=== PATIENT | male | born 1995 | race Caucasian/White ===

== ENCOUNTER 2016-07-10 17:03 | Emergency (ER) | payer OTHER ==
--- NOTE | 2016-07-10 17:22 | ERPHSYRPT ---
- History of Present Illness Time Seen by Provider: 07/10/16 17:15 Source: patient Exam Limitations: no limitations Patient Subjective Stated Complaint: sore throat Triage Nursing Assessment: sore throat for 3 days and 'a sore in my mouth' denies fever. blister type area to lt tongue and rt throat Timing/Duration: gradual onset Severity: moderate ENT Location: throat Prearrival Treatment: no prearrival treatment Modifying Factors: Improves With: nothing Associated Symptoms: denies symptoms Allergies/Adverse Reactions: No Known Drug Allergies Allergy (Unverified 07/10/16 17:12) Home Medications: Levothyroxine Sodium 75 Mcg [Synthroid 75 Mcg] 75 mcg PO DAILY 07/10/16 [ History] Hx Tetanus, Diphtheria Vaccination/Date Given: Yes Hx Influenza Vaccination/Date Given: No Hx Pneumococcal Vaccination/Date Given: No Immunizations Up to Date: Yes - Review of Systems Constitutional: No Symptoms Eyes: No Symptoms Ears, Nose, & Throat: Mouth Pain, Throat Pain Respiratory: No Symptoms Cardiac: No Symptoms Abdominal/Gastrointestinal: No Symptoms Genitourinary Symptoms: No Symptoms Musculoskeletal: No Symptoms Skin: No Symptoms Neurological: No Symptoms Psychological: No Symptoms Endocrine: No Symptoms Hematologic/Lymphatic: No Symptoms - Past Medical History Pertinent Past Medical History: Yes Endocrine Medical History: Hypothyroidism Psycho-Social History: Anxiety - Past Surgical History Past Surgical History: Yes Other Surgical History: skin cancer. tonsils - Social History Smoking Status: Never smoker Exposure to second hand smoke: Yes Drug Use: none Patient Lives Alone: No - Nursing Vital Signs Nursing Vital Signs: Initial Vital Signs Temperature 98.0 F Temperature Source Oral Pulse Rate 66 Respiratory Rate 18 Blood Pressure 123/73 Pain Intensity 8 - Physical Exam General Appearance: moderate distress, alert Eye Exam: bilateral eye: normal inspection, EOMI Nasal Exam: normal inspection Throat Exam: pharynx tenderness (2 cm diameter shallow ulcer right posterior pharynx with whitish exudate), tongue swollen (1/2 cm diameter ulceration left tip of tongue.) Neck Exam: normal inspection, non-tender, supple, full range of motion Cardiovascular/Respiratory Exam: chest non-tender, normal breath sounds, regular rate/rhythm, heart sounds normal Abdominal Exam: non-tender, soft Neurologic Exam: alert, oriented x 3, cooperative Skin Exam: normal color, warm, dry SpO2 Interpretation: normal SpO2: 95 Oxygen Delivery: Room Air Ordered Tests: Medication Summary Discontinued Medications Generic Name Dose Route Start Last Admin Trade Name Sophy PRN Reason Stop Dose Admin Al Hydrox/Mg Hydrox/Simethicone Confirm 07/10/16 17:32 Maalox Es 30 Ml Unit Dose Administered 07/10/16 17:33 Dose 30 ml .ROUTE .STK-MED ONE Diphenhydramine HCl Confirm 07/10/16 17:31 Benadryl 12.5 Mg/5 Ml Administered 07/10/16 17:32 Dose 15 mg .ROUTE .STK-MED ONE Lidocaine HCl Confirm 07/10/16 17:32 Xylocaine Hcl Viscous * Administered 07/10/16 17:33 Dose 30 ml .ROUTE .STK-MED ONE - Departure Time of Disposition: 17:25 Departure Disposition: Home Clinical Impression: Aphthous stomatitis, Aphthous ulcer of tongue Condition: Stable Critical Care Time: No Referrals: GENNY GODINEZ [Primary Care Provider] -
[2016-07-10] MEDS ORDERED: BENADRYL 12.5 MG/5 ML ONE (17:31)
[2016-07-10] MEDS ORDERED: MAALOX ES 30 ML UNIT DOSE ONE (17:32)
[2016-07-10] MEDS ORDERED: XYLOCAINE HCl Viscous ONE (17:32)
[2016-07-10] MEDS ORDERED: XYLOCAINE VISCOUS 2% 20 ML CUP PO ONE (17:40)
[2016-07-10] MEDS ORDERED: BENADRYL 12.5 MG/5 ML PO ONE (17:40)
[2016-07-10] MEDS ORDERED: MAALOX ES 30 ML UNIT DOSE PO ONE (17:41)
[2016-07-10 18:13] VITALS: BP 119/85; PULSE 82; O2SAT 95
== END 2016-07-10 18:10 | disposition home or self-care (01) ==
LOC: ED 17:03
DX: K12.0 Recurrent oral aphthae (principal); K14.0 Glossitis
CPT/HCPCS: 99283